=== PATIENT | male | born 1975 | race Caucasian/White ===

== ENCOUNTER 2019-03-16 23:57 | Emergency (ER) | payer SELFPAY ==
--- NOTE | 2019-03-17 00:33 | Emergency Department Record ---
History of Present Illness - General Chief complaint: Lower Extremity Pain Stated complaint: LEFT FOOT INJURY Time Seen by Provider: 03/17/19 00:07 Source: Patient Mode of Arrival: Ambulatory Limitations: No limitations - History of Present Illness Initial comments: pt stepped in hole 6 hours ago injuring his l foot Complaint: Extremity pain, Extremity swelling Onset/Timin -: Hour(s) Location: Left, Foot History of Same: No Severity scale (1-10): 8 Quality: Sharp, Stabbing Consistency: Constant Worsens with: Walking, Weight bearing Associated Symptoms: Denies other symptoms - Related Data Previous Rx's Medication Instructions Recorded Hydrocodone/Acetaminophen [Morral 1 each PO Q6HR #10 tablet 03/17/19 5-325 Tablet] Allergies Allergy/AdvReac Type Severity Reaction Status Date / Time amoxicillin Allergy RASH Verified 03/17/19 00:07 Travel Screening - Travel/Exposure Within Last 30 Days Have you traveled within the last 30 days?: No - Travel/Exposure Within Last Year Have you traveled outside the [place] in the last year?: No - Additonal Travel Details Have you been exposed to anyone with a communicable illness?: No - Travel Symptoms Symptom Screening: None Review of Systems Reviewed: No additional complaints except as noted below Constitutional: Reports: As per HPI. Denies: Chills, Fever, Malaise, Night sweats, Weakness, Weight change Eyes: Reports: As per HPI. Denies: Eye discharge, Eye pain, Photophobia, Vision change ENT: Reports: As per HPI. Denies: Congestion, Dental pain, Ear pain, Epistaxis, Hearing loss, Throat pain Respiratory: Reports: As per HPI. Denies: Cough, Dyspnea, Hemoptysis, Stridor, Wheezes Cardiovascular: Reports: As per HPI. Denies: Arrhythmia, Chest pain, Dyspnea on exertion, Edema, Murmurs, Orthopnea, Palpitations, Paroxysmal nocturnal dyspnea, Rheumatic Fever, Syncope Endocrine: Reports: As per HPI. Denies: Fatigue, Heat or cold intolerance, Polydipsia, Polyuria Gastrointestinal: Reports: As per HPI. Denies: Abdominal pain, Constipation, Diarrhea, Hematemesis, Hematochezia, Melena, Nausea, Vomiting Genitourinary: Reports: As per HPI. Denies: Dysuria, Frequency, Hematuria, Incontinence, Retention, Testicular pain, Testicular mass, Urgency Musculoskeletal: Reports: As per HPI. Denies: Arthralgia, Back pain, Gout, Joint swelling, Myalgia, Neck pain Skin: Reports: As per HPI. Denies: Bruising, Change in color, Change in hair/nails, Lesions, Pruritus, Rash Neurological: Reports: As per HPI. Denies: Abnormal gait, Confusion, Headache, Numbness, Paresthesias, Seizure, Tingling, Tremors, Vertigo, Weakness Psychiatric: Reports: As per HPI. Denies: Anxiety, Auditory hallucinations, Depression, Homicidal thoughts, Suicidal thoughts, Visual hallucinations Hematological/Lymphatic: Reports: As per HPI. Denies: Anemia, Blood Clots, Easy bleeding, Easy bruising, Swollen glands Past Medical History - SOCIAL HISTORY Smoking Status: Current every day smoker Alcohol Use: Rare Drug Use: Heavy Drug Use Detail:: Marijuana - RESPIRATORY Hx Respiratory Disorders: No - CARDIOVASCULAR Hx Cardio Disorders: No - NEURO Hx Neuro Disorders: No - GI Hx GI Disorders: No - Hx Genitourinary Disorders: No - ENDOCRINE Hx Endocrine Disorders: No - MUSCULOSKELETAL Hx Musculoskeletal Disorders: No - PSYCH Hx Psych Problems: Yes Hx Depression: Yes Family Medical History Any Significant Family History?: No Physical Exam - General General Appearance: Alert, Oriented x3, Cooperative, Mild distress - Head Head exam: Normal inspection - Eye Eye exam: Normal appearance, PERRL, EOMI Pupils: Normal accommodation - ENT ENT exam: Normal exam, Mucous membranes moist, Normal external ear exam, Normal orophraynx Ear exam: Normal external inspection. negative: External canal tenderness Nasal Exam: Normal inspection. negative: Discharge, Sinus tenderness Mouth exam: Normal external inspection, Tongue normal Teeth exam: Normal inspection. negative: Dental caries Throat exam: Normal inspection. negative: Tonsillar erythema, Tonsillar exudate - Neck Neck exam: Normal inspection, Full ROM. negative: Tenderness - Respiratory Respiratory exam: Normal lung sounds bilaterally. negative: Respiratory distress - Cardiovascular Cardiovascular Exam: Regular rate, Normal rhythm, Normal heart sounds - GI/Abdominal GI/Abdominal exam: Soft, Normal bowel sounds. negative: Tenderness - Rectal Rectal exam: Deferred - exam: Deferred - Extremities Extremities exam: Joint swelling, Normal capillary refill, Pedal edema, Tenderness. negative: Normal inspection, Full ROM - Back Back exam: Reports: Normal inspection, Full ROM. Denies: Muscle spasm, Rash noted, Tenderness - Neurological Neurological exam: Alert, CN II-XII intact, Normal gait, Oriented X3 - Psychiatric Psychiatric exam: Normal affect, Normal mood - Skin Skin exam: Dry, Intact, Normal color, Warm Course Vital Signs 03/17/19 00:03 Temperature 98.4 F Pulse Rate [ 94 H Left] Respiratory 16 Rate Blood Pressure 115/80 [Left Arm] Pulse Ox 100 - Reevaluation(s) Reevaluation #1: 03/17/19 01:18 xrays show fxs of 2nd and 4thmtps and possibly 3rd mtp Reevaluation #2: 03/17/19 02:15 pt was d/w dr ramirez who requested pt be sent to [facility] er to get ct of his foot for potential surgery Disposition Disposition: Transfer Clinical Impression: Lisfranc fracture Disposition: Acute Care Hospital Transfer Transfer To: [facility] Reason For Transfer: needs ct and ortho per dr ramirez Accepting Physician: sima morris and claudy Time Discussed w/Accepting Physician: 02:16 Condition: (1) Good Instructions: Foot Fracture in Adults (ED) Additional Instructions: follow up with ortho jenae. ice and elevate. return sooner if worse. Prescriptions: Hydrocodone/Acetaminophen [Morral 5-325 Tablet] 1 each PO Q6HR #10 tablet Referrals: NATALY RAMIREZ [[email or web address]] - Forms: Patient Portal Access Quality - Quality Measures Quality Measures: N/A - Blood Pressure Screening Does Patient Have Any of the Following: No Blood Pressure Classification: Pre-Hypertensive BP Reading Systolic Measurement: 115 Diastolic Measurement: 80 Screening for High Blood Pressure: < Pre-Hypertensive BP, F/U Documented > [[id number]] Pre-Hypertensive Follow-up Interventions: Follow-up with rescreen every year.
--- NOTE | 2019-03-17 00:55 | RADIOLOGY REPORT ---
EXAMINATION: Left Ankle, Complete Minimum Three Views EXAM DATE: 03/17/2019 12:51 AM TECHNIQUE: AP, lateral, and oblique INDICATION: injury COMPARISON: None ENCOUNTER: Initial FINDINGS: Fracture deformity at the base of the second and fourth metatarsal bone. The ankle mortise is intact. IMPRESSION: Fracture deformity base of the second and fourth metatarsal bone. The ankle mortise is intact Dictated by: Ce Green DO on 03/17/2019 12:52 AM. .
--- NOTE | 2019-03-17 00:56 | RADIOLOGY REPORT ---
EXAMINATION: Left Foot, Minimum Three Views EXAM DATE: 03/17/2019 12:51 AM TECHNIQUE: AP, lateral, and oblique INDICATION: injury COMPARISON: None ENCOUNTER: Initial FINDINGS: Fracture deformity of the base of the second and fourth metatarsal bones. Probable fracture deformity base of the third metatarsal bone. Dorsal soft tissue swelling IMPRESSION: Fracture deformity base of the second, fourth and likely third metatarsal bones. Dictated by: Ce Green DO on 03/17/2019 12:53 AM. .
[2019-03-17] MEDS ORDERED: HYDROCODONE/APAP 5/325MG TABLET PO ONE (01:14)
== END 2019-03-17 02:36 | disposition short-term general hospital (02) ==
LOC: ER 23:57
DX: S92.322A Displaced fracture of second metatarsal bone, left foot, initial encounter for closed fracture (principal); S92.342A Displaced fracture of fourth metatarsal bone, left foot, initial encounter for closed fracture; X50.0XXA Overexertion from strenuous movement or load, initial encounter; F17.210 Nicotine dependence, cigarettes, uncomplicated
CPT/HCPCS: 99285